=== PATIENT | male | born 1965 | race Caucasian/White ===

== ENCOUNTER 2019-01-20 16:29 | Emergency (ER) | payer OTHER ==
[~2019-01-20] VITALS: Ht 170.2 cm; Wt 104.3 kg
== END 2019-01-20 20:25 | disposition home or self-care (01) ==
LOC: ER 16:29
DX: S10.83XA Contusion of other specified part of neck, initial encounter (principal); S00.532A Contusion of oral cavity, initial encounter; S30.1XXA Contusion of abdominal wall, initial encounter; S60.212A Contusion of left wrist, initial encounter; S70.02XA Contusion of left hip, initial encounter; S90.02XA Contusion of left ankle, initial encounter; M54.2 Cervicalgia; R10.31 Right lower quadrant pain; M25.572 Pain in left ankle and joints of left foot; M25.552 Pain in left hip; V49.88XA Car occupant (driver) (passenger) injured in other specified transport accidents, initial encounter; Y93.89 Activity, other specified; Y92.488 Other paved roadways as the place of occurrence of the external cause; Y99.8 Other external cause status